=== PATIENT | female | born 1945 | race Two or more races ===

== ENCOUNTER 2018-02-22 18:30 | Inpatient (IN) | payer MEDICARE ==
[~2018-02-22] VITALS: Ht 162.6 cm; Wt 103.1 kg
[2018-02-22 19:30] LABS: BASOPHILS % (AUTO) 1 % (0-1); EOSINOPHILS # (AUTO) 0.11 x10^3/uL (0-0.4); EOSINOPHILS % (AUTO) 1 % (1-7); LYMPHOCYTES # (AUTO) 1.88 x10^3/uL (1-3.4); LYMPHOCYTES % (AUTO) 21 % (22-44); MD NO; MEAN CORPUSCULAR HGB CONC 32.9 g/dL (32.4-35.8); MEAN CORPUSCULAR VOLUME 94.2 fL (80-100); MEAN PLATELET VOLUME 9.4 fL (7.4-10.4); MONOCYTES # (AUTO) 0.52 x10^3/uL (0.2-0.8); MONOCYTES % (AUTO) 6 % (2-9); NEUTROPHILS # (AUTO) 6.49 x10^3/uL (1.8-6.8); NEUTROPHILS % (AUTO) 71 % (42-75); PLATELET COUNT 186 x10^3/uL (130-400); RED BLOOD COUNT 3.78 x10^6/uL (3.82-5.3); RED CELL DISTRIBUTION WIDTH 15.6 % (9.6-15.2)
[2018-02-22 19:43] LABS: ALBUMIN 3.4 g/dL (3.4-5.0); ANION GAP 6 mmol/L (5-15); CHLORIDE 104 mmol/L (98-107); CREATININE 1.61 mg/dL (0.55-1.02)
[2018-02-22 19:47] LABS: TROPONIN I 0.024 ng/mL (0.000-0.045)
[2018-02-22] MEDS ORDERED: NITROGLYCERIN OINT 2%, 1GM TP ONE ×2 (20:30→20:37)
[2018-02-22] MEDS ORDERED: FUROSEMIDE 40 MG/4 ML IVPush ONE (20:30)
[2018-02-22] MEDS ORDERED: ASPIRIN 81 MG TABLET CHEW PO ONE (20:30)
[2018-02-22] MEDS ORDERED: SODIUM CHLORIDE FLUSH 10ML SYR IVF ONE (20:30)
[2018-02-22] MEDS ORDERED: ASPIRIN 81 MG TABLET CHEW ONE (20:37)
[2018-02-22] MEDS ORDERED: FUROSEMIDE 20 MG/2 ML ONE (20:38)
[2018-02-22] MEDS ORDERED: FUROSEMIDE 40 MG/4 ML ONE (20:38)
[2018-02-22] MEDS ORDERED: ASPIRIN 81 MG TABLET EC ONE (20:41)
[2018-02-22] MEDS ORDERED: BISACODYL 10 MG SUPP PR PRN (21:30)
[2018-02-22] MEDS ORDERED: POLYETHYLENE GLYCOL 17 GM PACKET PO PRN (21:30)
[2018-02-22] MEDS ORDERED: ONDANSETRON 2MG/ML, 2ML IVPush PRN (21:30)
[2018-02-22 22:25] LABS: HEMOGLOBIN A1C 7.2 % (4.2-6.3)
[2018-02-22 23:32] VITALS: BP 145/95
[2018-02-23] MEDS: POTASSIUM CHLORIDE 20 MEQ TAB.ER.PRT PO SCH ×3 (00:42→17:20)
[2018-02-23] MEDS: HEPARIN 5,000 UNITS/ML, 1ML SQ SCH ×3 (00:42→17:21)
[2018-02-23] MEDS: SODIUM CHLORIDE FLUSH 10ML SYR IVF SCH ×3 (00:42→21:00)
[2018-02-23 00:46] VITALS: BP 144/99
[2018-02-23 05:12] LABS: BASOPHILS # (AUTO) 0.03 x10^3/uL (0-0.1); BASOPHILS % (AUTO) 0 % (0-1); EOSINOPHILS # (AUTO) 0.15 x10^3/uL (0-0.4); EOSINOPHILS % (AUTO) 2 % (1-7); LYMPHOCYTES # (AUTO) 1.74 x10^3/uL (1-3.4); LYMPHOCYTES % (AUTO) 22 % (22-44); MD NO; MEAN CORPUSCULAR HEMOGLOBIN 31.2 pg (27.0-34.8); MEAN CORPUSCULAR VOLUME 94.4 fL (80-100); MEAN PLATELET VOLUME 9.6 fL (7.4-10.4); MONOCYTES # (AUTO) 0.58 x10^3/uL (0.2-0.8); MONOCYTES % (AUTO) 7 % (2-9); NEUTROPHILS # (AUTO) 5.57 x10^3/uL (1.8-6.8); NEUTROPHILS % (AUTO) 69 % (42-75); PLATELET COUNT 185 x10^3/uL (130-400); RED BLOOD COUNT 3.77 x10^6/uL (3.82-5.3); RED CELL DISTRIBUTION WIDTH 15.7 % (9.6-15.2)
[2018-02-23 05:40] LABS: CHLORIDE 100 mmol/L (98-107)
[2018-02-23 05:50] LABS: ALANINE AMINOTRANSFERASE 46 U/L (12-78); ALBUMIN 3.3 g/dL (3.4-5.0); ALKALINE PHOSPHATASE 45 U/L (45-117); ANION GAP 7 mmol/L (5-15); BILIRUBIN,TOTAL 0.6 mg/dL (0.2-1.0); CALCIUM 8.8 mg/dL (8.5-10.1); CHOLESTEROL, TOTAL 287 mg/dL (140-239); CREATININE 1.73 mg/dL (0.55-1.02); HDL CHOL % 25 % (28-40); HDL CHOLESTEROL (DIRECT) 71 mg/dL (40-60); LDL CHOLESTEROL,CALCULATED 178 mg/dL (54-169); LDL/HDL RATIO 2.5 (0.5-3.0); TRIGLYCERIDES 192 mg/dL (50-200); TROPONIN I 0.017 ng/mL (0.000-0.045); VLDL CHOLESTEROL 38 mg/dL (0-25)
[2018-02-23 06:13] VITALS: BP 113/71
[2018-02-23] MEDS: CARVEDILOL 6.25 MG TABLET PO SCH ×2 (06:17→17:30)
[2018-02-23 07:06] VITALS: BP 103/58
[2018-02-23] MEDS: SENNA/DOCUSATE TABLET PO SCH (08:24)
[2018-02-23] MEDS: FUROSEMIDE 40 MG/4 ML IV SCH ×2 (08:24→17:21)
[2018-02-23 11:26] LABS: TROPONIN I 0.021 ng/mL (0.000-0.045)
[2018-02-23 12:34] VITALS: BP 112/72
[2018-02-23] MEDS: ACETAMINOPHEN 325 MG TABLET PO PRN (17:21)
[2018-02-23 19:33] VITALS: BP 117/71
[2018-02-24 00:03] VITALS: BP 103/67
[2018-02-24] MEDS: CARVEDILOL 6.25 MG TABLET PO SCH ×2 (05:32→17:26)
[2018-02-24] MEDS: HEPARIN 5,000 UNITS/ML, 1ML SQ SCH ×3 (05:35→20:24)
[2018-02-24 05:38] LABS: ALBUMIN 3.3 g/dL (3.4-5.0); ANION GAP 7 mmol/L (5-15); CALCIUM 8.7 mg/dL (8.5-10.1); CHLORIDE 98 mmol/L (98-107)
[2018-02-24 05:39] LABS: BASOPHILS # (AUTO) 0.03 x10^3/uL (0-0.1); BASOPHILS % (AUTO) 0 % (0-1); EOSINOPHILS # (AUTO) 0.18 x10^3/uL (0-0.4); EOSINOPHILS % (AUTO) 3 % (1-7); LYMPHOCYTES % (AUTO) 27 % (22-44); MD NO; MEAN CORPUSCULAR HEMOGLOBIN 31.2 pg (27.0-34.8); MEAN CORPUSCULAR HGB CONC 32.7 g/dL (32.4-35.8); MEAN CORPUSCULAR VOLUME 95.3 fL (80-100); MEAN PLATELET VOLUME 9.9 fL (7.4-10.4); MONOCYTES # (AUTO) 0.51 x10^3/uL (0.2-0.8); MONOCYTES % (AUTO) 7 % (2-9); NEUTROPHILS % (AUTO) 63 % (42-75); PLATELET COUNT 192 x10^3/uL (130-400); RED BLOOD COUNT 3.71 x10^6/uL (3.82-5.3); RED CELL DISTRIBUTION WIDTH 16.1 % (9.6-15.2)
[2018-02-24 05:42] LABS: ALANINE AMINOTRANSFERASE 41 U/L (12-78); ALKALINE PHOSPHATASE 41 U/L (45-117); BILIRUBIN,TOTAL 0.5 mg/dL (0.2-1.0); CREATININE 1.99 mg/dL (0.55-1.02); TOTAL PROTEIN 8.7 g/dL (6.4-8.2)
[2018-02-24 07:50] VITALS: BP 103/65
[2018-02-24] MEDS ORDERED: FUROSEMIDE 40 MG/4 ML ONE (09:18)
[2018-02-24] MEDS: POTASSIUM CHLORIDE 20 MEQ TAB.ER.PRT PO SCH (09:38)
[2018-02-24] MEDS: SODIUM CHLORIDE FLUSH 10ML SYR IVF SCH ×2 (09:39→20:24)
[2018-02-24] MEDS: SENNA/DOCUSATE TABLET PO SCH (09:39)
[2018-02-24] MEDS: FUROSEMIDE 40 MG/4 ML IV SCH (09:42)
[2018-02-24 11:43] LABS: MICROSCOPIC AUTO
[2018-02-24 11:46] LABS: CULTURE INDICATED? YES
[2018-02-24 12:30] VITALS: BP 122/74
[2018-02-24] MEDS ORDERED: CEFTRIAXONE 2 GM in SODIUM CHLORIDE 0.9% 50 ML IV SCH (14:00)
[2018-02-24] MEDS: CEFTRIAXONE 2 GM in DEXTROSE 5% 50 ML IV SCH (14:49)
[2018-02-24] MEDS ORDERED: ONDANSETRON 2MG/ML, 2ML IVPush PRN (16:36)
[2018-02-24] MEDS ORDERED: FUROSEMIDE 20 MG/2 ML IV SCH (17:00)
[2018-02-24] MEDS ORDERED: ONDANSETRON ODT 4 MG PO PRN (17:00)
[2018-02-24] MEDS: INSULIN LISPRO 100 UNITS/ML, PEN SQ-INSULIN SCH ×2 (17:25→20:39)
[2018-02-24 18:55] VITALS: BP 130/82
[2018-02-25 01:21] VITALS: BP 118/77
[2018-02-25] MEDS: ACETAMINOPHEN 325 MG TABLET PO PRN ×2 (02:52→20:27)
[2018-02-25 05:18] LABS: BASOPHILS # (AUTO) 0.12 x10^3/uL (0-0.1); BASOPHILS % (AUTO) 1 % (0-1); EOSINOPHILS # (AUTO) 0.01 x10^3/uL (0-0.4); EOSINOPHILS % (AUTO) 0 % (1-7); LYMPHOCYTES # (AUTO) 1.38 x10^3/uL (1-3.4); LYMPHOCYTES % (AUTO) 16 % (22-44); MD NO; MEAN CORPUSCULAR HEMOGLOBIN 30.5 pg (27.0-34.8); MEAN CORPUSCULAR HGB CONC 32.3 g/dL (32.4-35.8); MEAN CORPUSCULAR VOLUME 94.4 fL (80-100); MEAN PLATELET VOLUME 9.7 fL (7.4-10.4); MONOCYTES # (AUTO) 0.36 x10^3/uL (0.2-0.8); MONOCYTES % (AUTO) 4 % (2-9); NEUTROPHILS # (AUTO) 6.89 x10^3/uL (1.8-6.8); NEUTROPHILS % (AUTO) 79 % (42-75); PLATELET COUNT 199 x10^3/uL (130-400); RED CELL DISTRIBUTION WIDTH 16.1 % (9.6-15.2)
[2018-02-25 05:29] LABS: % IRON SATURATION 23 % (20-55); ANION GAP 8 mmol/L (5-15); CALCIUM 8.9 mg/dL (8.5-10.1); CHLORIDE 97 mmol/L (98-107); CREATININE 1.82 mg/dL (0.55-1.02); IRON LEVEL 81 mcg/dL (50-170); TOTAL IRON BINDING CAPACITY 345 mcg/dL (250-450)
[2018-02-25] MEDS: HEPARIN 5,000 UNITS/ML, 1ML SQ SCH ×3 (05:30→20:30)
[2018-02-25] MEDS: CARVEDILOL 6.25 MG TABLET PO SCH ×2 (06:00→16:31)
[2018-02-25] MEDS ORDERED: CYANOCOBALAMIN 1,000 MCG/ML, 1ML IM ONE (07:00)
[2018-02-25] MEDS: INSULIN LISPRO 100 UNITS/ML, PEN SQ-INSULIN SCH ×4 (07:00→20:30)
[2018-02-25 07:38] VITALS: BP 131/72
[2018-02-25] MEDS ORDERED: REGADENOSON 0.4 MG/5 ML SYRINGE ONE (08:42)
[2018-02-25] MEDS ORDERED: LEVOTHYROXINE 100 MCG INJ IVPush SCH (09:00)
[2018-02-25] MEDS: SENNA/DOCUSATE TABLET PO SCH (11:34)
[2018-02-25] MEDS: FOLIC ACID 1 MG TABLET PO SCH (11:34)
[2018-02-25] MEDS: POTASSIUM CHLORIDE 20 MEQ TAB.ER.PRT PO SCH (11:34)
[2018-02-25] MEDS: SODIUM CHLORIDE FLUSH 10ML SYR IVF SCH ×2 (11:35→20:28)
[2018-02-25] MEDS: FUROSEMIDE 20 MG/2 ML IV SCH (11:35)
[2018-02-25] MEDS: CEFTRIAXONE 2 GM in DEXTROSE 5% 50 ML IV SCH (14:13)
[2018-02-25 15:16] VITALS: BP 136/81
[2018-02-25 16:53] LABS: CREATININE,URINE RANDOM 49.7 mg/dL
[2018-02-25] MEDS ORDERED: ATOR40TA78 PO (17:52)
[2018-02-25] MEDS ORDERED: CARV6.252 PO (17:52)
[2018-02-25] MEDS ORDERED: LEVO125T5 PO (17:52)
[2018-02-25] MEDS ORDERED: CHLO25TA PO (17:52)
[2018-02-25] MEDS ORDERED: METF850T2 PO (17:52)
[2018-02-25] MEDS ORDERED: ASPI-621 PO (17:52)
[2018-02-25] MEDS ORDERED: LISI-170 PO (17:52)
[2018-02-25 20:38] VITALS: BP 142/89
[2018-02-26 01:52] VITALS: BP 129/72
[2018-02-26 05:00] LABS: BASOPHILS # (AUTO) 0.03 x10^3/uL (0-0.1); BASOPHILS % (AUTO) 0 % (0-1); EOSINOPHILS % (AUTO) 0 % (1-7); LYMPHOCYTES # (AUTO) 1.45 x10^3/uL (1-3.4); LYMPHOCYTES % (AUTO) 14 % (22-44); MD NO; MEAN CORPUSCULAR HGB CONC 32.9 g/dL (32.4-35.8); MEAN CORPUSCULAR VOLUME 94.2 fL (80-100); MEAN PLATELET VOLUME 9.8 fL (7.4-10.4); MONOCYTES # (AUTO) 0.23 x10^3/uL (0.2-0.8); MONOCYTES % (AUTO) 2 % (2-9); NEUTROPHILS % (AUTO) 83 % (42-75); PLATELET COUNT 217 x10^3/uL (130-400); RED BLOOD COUNT 3.83 x10^6/uL (3.82-5.3); RED CELL DISTRIBUTION WIDTH 15.6 % (9.6-15.2)
[2018-02-26 05:13] LABS: ALBUMIN 3.4 g/dL (3.4-5.0); ANION GAP 9 mmol/L (5-15); CALCIUM 9.2 mg/dL (8.5-10.1); CHLORIDE 97 mmol/L (98-107)
[2018-02-26] MEDS: CARVEDILOL 6.25 MG TABLET PO SCH ×2 (06:16→17:52)
[2018-02-26] MEDS: HEPARIN 5,000 UNITS/ML, 1ML SQ SCH ×3 (06:16→20:49)
[2018-02-26] MEDS: INSULIN LISPRO 100 UNITS/ML, PEN SQ-INSULIN SCH ×4 (07:00→20:49)
[2018-02-26 07:50] VITALS: BP 153/90
[2018-02-26] MEDS: LEVOTHYROXINE 100 MCG INJ IVPush SCH (08:02)
[2018-02-26] MEDS: FUROSEMIDE 20 MG/2 ML IV SCH (08:06)
[2018-02-26] MEDS: POTASSIUM CHLORIDE 20 MEQ TAB.ER.PRT PO SCH (08:06)
[2018-02-26] MEDS: SODIUM CHLORIDE FLUSH 10ML SYR IVF SCH ×2 (08:06→20:49)
[2018-02-26] MEDS: FOLIC ACID 1 MG TABLET PO SCH (08:06)
[2018-02-26] MEDS: SENNA/DOCUSATE TABLET PO SCH (08:07)
[2018-02-26 10:33] VITALS: BP 150/93
[2018-02-26 12:32] VITALS: BP 143/95
[2018-02-26] MEDS: CEFTRIAXONE 2 GM in DEXTROSE 5% 50 ML IV SCH (15:55)
[2018-02-26 20:16] VITALS: BP 132/85
[2018-02-27 01:41] VITALS: BP 133/88
[2018-02-27] MEDS: FUROSEMIDE 20 MG/2 ML IV SCH (05:31)
[2018-02-27 05:32] VITALS: BP 154/94
[2018-02-27] MEDS: HEPARIN 5,000 UNITS/ML, 1ML SQ SCH ×2 (05:32→14:47)
[2018-02-27] MEDS: LEVOTHYROXINE 100 MCG INJ IVPush SCH (05:32)
[2018-02-27] MEDS: CARVEDILOL 6.25 MG TABLET PO SCH ×2 (05:32→17:53)
[2018-02-27 06:48] VITALS: BP 149/89
[2018-02-27] MEDS: INSULIN LISPRO 100 UNITS/ML, PEN SQ-INSULIN SCH ×3 (07:00→17:48)
[2018-02-27 07:44] LABS: BASOPHILS # (AUTO) 0.17 x10^3/uL (0-0.1); BASOPHILS % (AUTO) 2 % (0-1); EOSINOPHILS # (AUTO) 0.01 x10^3/uL (0-0.4); EOSINOPHILS % (AUTO) 0 % (1-7); LYMPHOCYTES # (AUTO) 2.33 x10^3/uL (1-3.4); LYMPHOCYTES % (AUTO) 23 % (22-44); MD NO; MEAN CORPUSCULAR HEMOGLOBIN 31.2 pg (27.0-34.8); MEAN CORPUSCULAR HGB CONC 32.8 g/dL (32.4-35.8); MEAN CORPUSCULAR VOLUME 95.2 fL (80-100); MEAN PLATELET VOLUME 9.7 fL (7.4-10.4); MONOCYTES # (AUTO) 0.47 x10^3/uL (0.2-0.8); MONOCYTES % (AUTO) 5 % (2-9); NEUTROPHILS # (AUTO) 7.22 x10^3/uL (1.8-6.8); NEUTROPHILS % (AUTO) 71 % (42-75); PLATELET COUNT 226 x10^3/uL (130-400); RED BLOOD COUNT 3.81 x10^6/uL (3.82-5.3); RED CELL DISTRIBUTION WIDTH 15.4 % (9.6-15.2)
[2018-02-27 07:48] LABS: ALBUMIN 3.5 g/dL (3.4-5.0); ANION GAP 7 mmol/L (5-15); CALCIUM 8.9 mg/dL (8.5-10.1); CHLORIDE 95 mmol/L (98-107)
[2018-02-27] MEDS ORDERED: PHARMACY MAY ADJ FOR RENAL FX MC PRN (08:30)
[2018-02-27] MEDS ORDERED: FUROSEMIDE 20 MG/2 ML IV SCH (09:00)
[2018-02-27] MEDS ORDERED: MAGNESIUM HYDROXIDE 8%, 30ML UDC PO SCH (09:00)
[2018-02-27] MEDS: FOLIC ACID 1 MG TABLET PO SCH (09:59)
[2018-02-27] MEDS: POTASSIUM CHLORIDE 20 MEQ TAB.ER.PRT PO SCH (09:59)
[2018-02-27] MEDS: SENNA/DOCUSATE TABLET PO SCH (10:00)
[2018-02-27] MEDS: SODIUM CHLORIDE FLUSH 10ML SYR IVF SCH (10:01)
[2018-02-27] MEDS: ACETAMINOPHEN 325 MG TABLET PO PRN (10:02)
[2018-02-27] MEDS ORDERED: MAALOX/HYOSCYAMINE/LIDOCAINE 45 ML BTL PO ONE (11:05)
[2018-02-27] MEDS ORDERED: FOLI-17 PO (12:06)
[2018-02-27] MEDS ORDERED: LEVO125T5 PO (12:08)
[2018-02-27] MEDS ORDERED: CEFD300C37 PO (12:09)
[2018-02-27] MEDS ORDERED: FURO-93 PO (12:10)
[2018-02-27] MEDS ORDERED: POTA10CA PO (12:10)
[2018-02-27 13:51] VITALS: BP 145/87
[2018-02-27] MEDS: CEFTRIAXONE 2 GM in DEXTROSE 5% 50 ML IV SCH (14:46)
[2018-02-27] MEDS ORDERED: TAMS0.4C2 PO (18:26)
== END 2018-02-27 20:32 | disposition home or self-care (01) | DRG 291 ==
LOC: ED 21:05 → EDIP 21:51 → 4WST 22:55 → 5SO 02-23 23:33 → 4EST 02-26 12:10
PROVIDERS: ADMIT Hospitalist; ATTEND Hospitalist
DX: I11.0 Hypertensive heart disease with heart failure (principal); N17.0 Acute kidney failure with tubular necrosis; E44.1 Mild protein-calorie malnutrition; N13.30 Unspecified hydronephrosis; E11.9 Type 2 diabetes mellitus without complications; B96.1 Klebsiella pneumoniae [K. pneumoniae] as the cause of diseases classified elsewhere; N39.0 Urinary tract infection, site not specified; E66.9 Obesity, unspecified; Z68.39 Body mass index [BMI] 39.0-39.9, adult; E78.5 Hyperlipidemia, unspecified; I50.41 Acute combined systolic (congestive) and diastolic (congestive) heart failure; E78.00 Pure hypercholesterolemia, unspecified; I71.9 Aortic aneurysm of unspecified site, without rupture; Z79.82 Long term (current) use of aspirin; Z83.3 Family history of diabetes mellitus; Z88.0 Allergy status to penicillin
CPT/HCPCS: 36415; 71045; 71046; 74176; 74230; 76700; 78452; 80048; 80053; 80061; 81001; 82040; 82570; 82607; 82728; 82746; 82962; 83036; 83540; 83550; 83735; 83880; 84100; 84156; 84443; 84484; 85025; 87077; 87086; 87186; 93005; 93017; 93306; 96374; J0696; J1644; J1940; J2785; A9502; C9898; J1815; J3420; J7512

== ENCOUNTER → 2018-03-08 | Outpatient (CLI) | payer MEDICARE ==
[~2018-03-08] MED LIST: ASPI-621 PO; ATOR40TA78 PO; CARV6.252 PO; CEFD300C37 PO; CHLO25TA PO; FOLI-17 PO; FURO-93 PO; LEVO125T5 PO; LISI-170 PO; METF850T2 PO; POTA10CA PO; TAMS0.4C2 PO
== END | disposition home or self-care (01) ==
LOC: CFH 16:01
PROVIDERS: ATTEND Family Medicine
DX: I51.7 Cardiomegaly (principal)
CPT/HCPCS: 71046